=== PATIENT | male | born 1980 | race Two or more races ===

== ENCOUNTER 2019-11-30 23:41 | Emergency (ER) | payer SELFPAY ==
[~2019-11-30] VITALS: Ht 172.7 cm; Wt 111.1 kg
--- NOTE | 2019-11-30 23:41 | NUR ---
Dr. Parker at bedside for MSE
[2019-11-30] MEDS ORDERED: IV NORMAL SALINE 1000 ML BAG IV ONE (23:45)
[2019-12-01 00:13] LABS: BASOPHILS # (AUTO) 0.1 K/uL (0.0-8.0); BASOPHILS % (AUTO) 1.4 % (0.0-2.0); EOSINOPHILS # (AUTO) 0.4 K/uL (0.0-0.7); EOSINOPHILS % (AUTO) 4.4 % (0.0-7.0); HEMATOCRIT 41.3 % (36.7-47.1); HEMOGLOBIN 13.9 g/dL (12.5-16.3); LYMPHOCYTES # (AUTO) 2.1 K/uL (20.0-40.0); MEAN CORPUSCULAR HEMOGLOBIN 28.2 uug (23.8-33.4); MEAN CORPUSCULAR HGB CONC 34 g/dL (32.5-36.3); MEAN CORPUSCULAR VOLUME 83.9 fL (73.0-96.2); MONOCYTES # (AUTO) 0.6 K/uL (2.0-10.0); NEUTROPHILS # (AUTO) 5.5 K/uL (1.8-8.9); NEUTROPHILS % (AUTO) 63.2 % (38.5-71.5); PLATELET COUNT (AUTO) 266 K/uL (152-348); RED BLOOD CELL COUNT(AUTO) 4.92 MIL/uL (4.06-5.63); WHITE BLOOD COUNT (AUTO) 8.6 K/uL (3.6-10.2)
[2019-12-01 00:16] LABS: CREATININE 1.3 mg/dL (0.6-1.3); POTASSIUM 3.8 mmol/L (3.5-5.1)
--- NOTE | 2019-12-01 00:17 | NUR ---
pt out of er for CT
--- NOTE | 2019-12-01 00:24 | NUR ---
pt back from CT
[2019-12-01] MEDS ORDERED: KETOROLAC TROMETHAMINE 30 MG INJ ONE (00:56)
[2019-12-01] MEDS ORDERED: KETOROLAC TROMETHAMINE 30 MG INJ IVP ONE (01:00)
--- NOTE | 2019-12-01 01:46 | NUR ---
IV removed. Catheter intact and site benign. Pressure and 4x4 gauze applied to site. No bleeding noted.
--- NOTE | 2019-12-01 01:57 | NUR ---
Patient discharged to home in stable condition. Written and verbal after care instructions given. Patient verbalizes understanding of instructions. Stressed follow up or return to ER for worsening s/s. aa/ox4. able to speak in complete sentences respirations even and unlabored no s/s of distress all belongings with pt ambulatory with steady gait pt's will drive pt home
[2019-12-01 01:59] VITALS: BP 124/60
== END 2019-12-01 01:59 | disposition home or self-care (01) ==
LOC: EDBD 23:41 → ER 23:41
DX: R51 Headache (principal); R07.89 Other chest pain; J98.11 Atelectasis
CPT/HCPCS: 36415; 70450; 71045; 80048; 84484; 85025; 93005; 96374; 99285; J1885; 70030-TC; J7030